=== PATIENT | female | born 1955 | race Caucasian/White ===

== ENCOUNTER 2018-09-19 05:21 | Day surgery (SDC) | payer OTHER, BC ==
[2018-09-19] MEDS ORDERED: LIDOCAINE 2% (SDV) 5 ML INJ (07:00)
[2018-09-19] MEDS ORDERED: DEXAMETHASONE 4 MG/ML 1 ML INJ (07:31)
[2018-09-19] MEDS ORDERED: BACITRACIN/POLYMYXIN 28.35 GM OINT TOP (07:31)
[2018-09-19] MEDS ORDERED: ONDANSETRON 4 MG INJ IV (08:00)
[2018-09-19] MEDS ORDERED: METOCLOPRAMIDE 10 MG INJ IV (08:00)
[2018-09-19] MEDS ORDERED: MEPERIDINE 25 MG INJ IV (08:00)
[2018-09-19] MEDS ORDERED: HYDROmorphONE 1 MG/5 ML IV SYRINGE IV ×2 (08:00)
[2018-09-19] MEDS ORDERED: FENTAnyl 50 MCG/ML VIAL IV ×2 (08:00)
[2018-09-19] MEDS ORDERED: DIPHENHYDRAMINE 50 MG INJ IV (08:00)
[2018-09-19] MEDS ORDERED: ALBUTEROL 0.083% (NEB) 2.5 MG/3 ML AMP HHN (08:00)
[2018-09-19] MEDS ORDERED: FENTAnyl 50 MCG/ML VIAL (08:02)
[2018-09-19] MEDS ORDERED: MIDAZOLAM 1 MG/ML 2 ML INJ (08:02)
[2018-09-19] MEDS ORDERED: CEFAZOLIN 1 GM INJ (08:14)
[2018-09-19] MEDS ORDERED: PROPOFOL 20 ML (08:14)
[2018-09-19] MEDS: BUPIVACAINE 0.5% (SDV) 30 ML INJ (08:19)
== END 2018-09-19 09:40 | disposition home or self-care (01) ==
LOC: SDS 05:21
DX: M20.42 Other hammer toe(s) (acquired), left foot (principal)
CPT/HCPCS: 28285